=== PATIENT | female | born 1970 | race Caucasian/White ===

== ENCOUNTER 2020-12-19 10:37 | Outpatient (CLI) | payer BC | END 2020-12-19 10:38 | disposition home or self-care (01) | LOC: NM 10:37 | PROVIDERS: ATTEND Urology | DX: R10.9 Unspecified abdominal pain (principal) | CPT/HCPCS: 78708; A4641; A9562 ==

== ENCOUNTER 2021-02-13 12:09 | Outpatient (CLI) | payer BC | END 2021-02-13 12:10 | disposition home or self-care (01) | LOC: BICMAMMO 12:09 | PROVIDERS: ATTEND Obstetrics & Gynecology | DX: Z12.31 Encounter for screening mammogram for malignant neoplasm of breast (principal); Z80.3 Family history of malignant neoplasm of breast | CPT/HCPCS: 77063; 77067 ==

== ENCOUNTER 2022-08-16 16:35 | Outpatient (CLI) | payer BC | END 2022-08-16 16:36 | disposition home or self-care (01) | LOC: SCSRAD 16:35 | PROVIDERS: ATTEND Internal Medicine Rheumatology | DX: M79.671 Pain in right foot (principal); M79.672 Pain in left foot; M19.072 Primary osteoarthritis, left ankle and foot ==

== ENCOUNTER 2023-01-08 15:49 | Outpatient (CLI) | payer BC | END 2023-01-08 15:50 | disposition home or self-care (01) | LOC: SCSRAD 15:49 | PROVIDERS: ATTEND Family Medicine | DX: M54.50 Low back pain, unspecified (principal); M47.816 Spondylosis without myelopathy or radiculopathy, lumbar region; M43.8X6 Other specified deforming dorsopathies, lumbar region; M43.16 Spondylolisthesis, lumbar region | CPT/HCPCS: 72100 ==

== ENCOUNTER 2023-05-10 15:42 | Outpatient (CLI) | payer BC | END 2023-05-10 15:43 | disposition home or self-care (01) | LOC: BICMAMMO 15:42 | PROVIDERS: ATTEND Obstetrics & Gynecology | DX: Z12.31 Encounter for screening mammogram for malignant neoplasm of breast (principal); Z80.3 Family history of malignant neoplasm of breast | CPT/HCPCS: 77063; 77067 ==

== ENCOUNTER 2024-05-05 08:11 | Outpatient (CLI) | payer BC ==
[2024-05-05] MEDS ORDERED: Iopamidol 370 76% 100 ML VIAL ONE (09:40)
== END 2024-05-05 08:12 | disposition home or self-care (01) ==
LOC: CT 08:11
PROVIDERS: ATTEND Family Medicine
DX: R31.29 Other microscopic hematuria (principal); N20.0 Calculus of kidney
CPT/HCPCS: 74178

== ENCOUNTER 2024-05-29 09:26 | Outpatient (CLI) | payer BC | END 2024-05-29 09:27 | disposition home or self-care (01) | LOC: BICMAMMO 09:26 | PROVIDERS: ATTEND Obstetrics & Gynecology | DX: Z12.31 Encounter for screening mammogram for malignant neoplasm of breast (principal); Z80.3 Family history of malignant neoplasm of breast | CPT/HCPCS: 77063; 77067 ==